=== PATIENT | male | born 1960 | race Asian ===

== ENCOUNTER 2023-09-26 16:48 | Emergency (ER) | payer BC ==
[~2023-09-26] VITALS: Ht 175.3 cm; Wt 88.0 kg
[2023-09-26 17:07] VITALS: BP_SYST 158; PULSE 97; RESP 18; TEMP 98.3; O2SAT 98
[2023-09-26 17:25] LABS: BILIRUBIN,URINE NEGATIVE (NEGATIVE); BLOOD, URINE NEGATIVE (NEGATIVE); CLARITY/URINE CLEAR (CLEAR); COLOR,URINE YELLOW (YELLOW); GLUCOSE,URINE NEGATIVE (NEGATIVE); KETONES,URINE NEGATIVE (NEGATIVE); LEUKOCYTE ESTERASE ,URINE NEGATIVE (NEGATIVE); NITRITE, URINE NEGATIVE (NEGATIVE); PROTEIN URINE NEGATIVE (NEGATIVE); UROBILINOGEN,URINE 0.2 (0.2-1.0)
[2023-09-26 17:47] LABS: HEMOGLOBIN 14.2 g/dL (14.0-18.0); MEAN CORPUSCULAR HEMOGLOBIN 31 pg (27-31); WHITE BLOOD COUNT (AUTO) 3.4 K/uL (4.8-10.8)
[2023-09-26 17:54] LABS: MEAN CORPUSCULAR HGB CONC 35 % (32-36); MEAN CORPUSCULAR VOLUME 88 fL (79.0-98.0); PLATELET COUNT (AUTO) 261 K/uL (130-430); RED BLOOD CELL COUNT(AUTO) 4.64 MIL/uL (4.2-6.2)
[2023-09-26 17:59] LABS: CALCIUM 9.7 mg/dL (8.4-11.0); CREATININE 1.4 mg/dL (0.55-1.30); POTASSIUM 4.3 mmol/L (3.5-5.1); PROTHROMBIN TIME 10.4 SECS (9.5-12.5)
[2023-09-26 18:01] LABS: ALBUMIN 3.7 g/dL (3.4-4.8); BILIRUBIN,DIRECT 0.1 mg/dL (0.0-0.3); TOTAL BILIRUBIN 0.4 mg/dL (0.0-1.0); TOTAL PROTEIN, SERUM 7.5 g/dL (6.4-8.3)
[2023-09-26 18:06] LABS: ATYPICAL LYMPHOCYTES % 11 % (0-0); BAND % (MANUAL) 0 % (0-6); BASOPHILS % (MANUAL) 0 % (0-2); EOSINOPHILS % (MANUAL) 0 % (0-7); LYMPHOCYTES % (MANUAL) 33 % (20-46); MONOCYTES % (MANUAL) 29 % (0-11); PLATELET ESTIMATE ADEQUATE (ADEQUATE)
[2023-09-26] MEDS: NACL 0.9% 1,000 ML IV ONE (19:22)
[2023-09-26 20:25] VITALS: BP_SYST 140; PULSE 92; RESP 18; TEMP 98.3; O2SAT 100
== END 2023-09-26 20:25 | disposition home or self-care (01) ==
LOC: SED 16:48
DX: N28.9 Disorder of kidney and ureter, unspecified (principal); D72.819 Decreased white blood cell count, unspecified; Z79.899 Other long term (current) drug therapy; E11.9 Type 2 diabetes mellitus without complications; I10 Essential (primary) hypertension
CPT/HCPCS: 99284; 96360; 71045; 85027; 80076; 80048; 81001; 83880; 85007; 85610; 85730; 36415; 81003; J7030